=== PATIENT | female | born 1945 ===

== ENCOUNTER 2017-05-08 09:07 | Emergency (ER) | payer SELFPAY ==
[2017-05-08 09:18] VITALS: O2SAT 95
[2017-05-08 09:20] VITALS: BMI 24.6
[2017-05-08 09:39] VITALS: RESP 16
[2017-05-08 09:50] LABS: RBC URINE 71 /hpf (0-3); URINE BILIRUBIN NEGATIVE (NEGATIVE); URINE BLOOD LARGE (NEGATIVE); URINE COLOR YELLOW (YELLOW); URINE GLUCOSE (UA) NEG (Normal); URINE KETONE NEGATIVE (NEGATIVE); URINE LEUKOCYTE ESTERASE LARGE Leu/uL (Negative); URINE PROTEIN 30 mg/dL (NEGATIVE); URINE UROBILINOGEN 0.2-1.0 mg/dL (0.2-1.0); WBC URINE 112 /hpf (0-5)
--- NOTE | 2017-05-08 10:15 | ED PDOC ---
HPI: Female Pain History Per: Patient, Family History/Exam Limitations: no limitations Onset/Duration Of Symptoms: Days Current Symptoms Are (Timing): Still Present Severity: Mild Quality Of Discomfort: Burning Associated Symptoms: Nausea, Back Pain, Urinary Symptoms. denies: Fever, Chills , Vomiting, Diarrhea, Chest Pain, Constipation Additional History Per: Family Additional Complaint(s): CC: abdominal pain HPI: 71 y/o woman w/ no pmh presents to the ED with abdominal pain. The patient reports 2 days of general abdominal pain but mainly in the suprapubic area. The patient reports dysuria, pain radiating to back, and constant. The patient reports associated hematuria and nausea but denies vomiting, diarrhea, fever, or history of nephrolithiases in the past. The patient has not taken any medication for the pain. The patient is visiting from [facility]. The patient had right femoral hernia repair 14 years ago. ROS: 12 points assessed and 11 negative unless other vasquez reported in HPI allergies: NKDA PMH: none PSH: right femoral hernia repair 14 years ago SOC: denies smoking, alcohol, and drugs Abnormal Vaginal Bleeding: No Last Menstral Period: menopausal <Sabino Ferreira - Last Filed: 05/08/17 15:39> <Robb Sheehan - Last Filed: 05/08/17 16:13> Time Seen by Provider: 05/08/17 09:26 Chief Complaint (Nursing): Female Genitourinary Supervising Attending Note - Supervising Attending Note The Documented history was done by the: Physician Buckle Coverer The documented physical exam was done by the: Physician Buckle Coverer The documented procedures were done by the: Physician Buckle Coverer - Attestation: I have personally seen and examined this patient.: Yes I have fully participated in the care of the patient.: Yes I have reviewed all pertinent clinical information, including history, physical exam and plan: Yes - Notes: Notes:: Dysuria <Robb Sheehan - Last Filed: 05/08/17 16:13> Past Medical History Reviewed: Historical Data, Nursing Documentation, Vital Signs Vital Signs: Last Vital Signs Temp 98.0 F 05/08/17 09:31 Pulse 56 L 05/08/17 09:31 Resp 16 05/08/17 09:31 BP 123/53 L 05/08/17 09:31 Pulse Ox 95 05/08/17 09:31 - Medical History PMH: No Chronic Diseases - Family History Family History: States: Unknown Family Hx <Sabino Ferreira - Last Filed: 05/08/17 15:39> Vital Signs: Last Vital Signs Temp 98.1 F 05/08/17 15:35 Pulse 61 05/08/17 15:35 Resp 16 05/08/17 15:35 BP 128/62 05/08/17 15:35 Pulse Ox 95 05/08/17 15:39 <SheehanRobb rodriguez - Last Filed: 05/08/17 16:13> - Home Medications Home Medications: Ambulatory Orders Medication Instructions Recorded Nitrofurantoin Macrocrystals 100 mg PO BID #10 cap 05/08/17 [Macrobid] - Allergies Allergies/Adverse Reactions: Allergies Allergy/AdvReac Type Severity Reaction Status Date / Time No Known Allergies Allergy Verified 05/08/17 09:31 Review of Systems ROS Statement: Except As Marked, All Systems Reviewed And Found Negative Constitutional: Negative for: Fever, Weakness Cardiovascular: Negative for: Chest Pain, Palpitations, Light Headedness Respiratory: Negative for: Cough, Shortness of Breath, SOB with Exertion, Wheezing Gastrointestinal: Positive for: Nausea, Abdominal Pain. Negative for: Vomiting , Diarrhea Genitourinary Female: Positive for: Dysuria, Hematuria Musculoskeletal: Positive for: Back Pain Neurological: Negative for: Weakness, Numbness, Altered Mental Status, Headache <Sabino Ferreira - Last Filed: 05/08/17 15:39> Physical Exam - Reviewed Nursing Documentation Reviewed: Yes Vital Signs Reviewed: Yes - Physical Exam Appears: Positive for: No Acute Distress Head Exam: Positive for: ATRAUMATIC, NORMAL INSPECTION, NORMOCEPHALIC Skin: Positive for: Normal Color, Warm, Dry Neck: Positive for: Normal, Painless ROM, Supple Cardiovascular/Chest: Positive for: Regular Rate, Rhythm, Chest Non Tender, Bradycardia. Negative for: Tachycardia Respiratory: Positive for: Normal Breath Sounds. Negative for: Accessory Muscle Use, Crackles, Rales, Rhonchi, Wheezing, Respiratory Distress Pulses-Carotid (L): 2+ Pulses-Carotid (R): 2+ Pulses-Post. Tibialis (L): 2+ Pulses-Post. Tibialis (R): 2+ Pulses-Radial (L): 2+ Pulses-Radial (R): 2+ Gastrointestinal/Abdominal: Positive for: Bowel Sounds, Soft, Tenderness. Negative for: Mass, Distended, Guarding, Rebound, Hernia Back: Negative for: L CVA Tenderness, R CVA Tenderness Neurologic/Psych: Positive for: Alert, Oriented. Negative for: Motor/Sensory Deficits, Aphasia <Sabino Ferreira - Last Filed: 05/08/17 15:39> - Physical Exam Cardiovascular/Chest: Positive for: Regular Rate, Rhythm, Chest Non Tender Respiratory: Positive for: Normal Breath Sounds <Robb Sheehan - Last Filed: 05/08/17 16:13> - Laboratory Results Result Diagrams: 05/08/17 10:45 05/08/17 10:45 - ECG O2 Sat by Pulse Oximetry: 95 - Progress ED Course And Treament: CBC w/ diff CMP troponin VBG UA blood culture urine culture EKG CT abdomen/pelvis w/ PO and IV contrast toradol 15 mg IVP IVF NS bolus <Sabino Ferreira - Last Filed: 05/08/17 15:39> - Laboratory Results Result Diagrams: 05/08/17 10:45 05/08/17 10:45 Interpretation Of Abn Labs: urine wbc - Progress ED Course And Treament: 1613: Stable. AAOx3. Tolerated PO. Fu with pcp. <SissyRobb - Last Filed: 05/08/17 16:13> Medical Decision Making Medical Decision Makin71 y/o woman w/ no pmh presents to the ED with abdominal pain CBC w/ diff: 8.0>13.7/41.1<219 CMP: 140/4.0, 107/21, 22/0.6, glucose 95, AST 24, ALT 27, alk phos 87 troponin: 0.0140 VBG: UA: protein 30, large blood, large leukocyte esterase, RBC 71, negative for ketones and nitrates blood culture urine culture EKG: sinus bradycardia, no ST segment elevation, depression, no peaked/inverted T waves, no widened QRS, no prolonged SD interval, no widened QT interval CT abdomen/pelvis w/ PO and IV contrast toradol 15 mg IVP IVF NS bolus re-evaluated 15:30 - patient feels better - CT scan negative Dispo: DC home, given script for macrobid 100 mg PO BID for 5 days <Sabnio Ferreira - Last Filed: 05/08/17 15:39> Disposition - Patient ED Disposition Is Patient to be Admitted: No Discussed With DrBill: Robb Sheehan Counseled Patient/Family Regarding: Studies Performed, Diagnosis, Need For Followup, Rx Given - Disposition Disposition Time: 15:39 - POA Present On Arrival: None <Sabino Ferreira - Last Filed: 05/08/17 15:39> <Robb Sheehan - Last Filed: 05/08/17 16:13> - Clinical Impression Clinical Impression: Urinary tract infection, Abdominal pain, Dehydration - Disposition Referrals: [facility] [Outside] - 05/09/17 Condition: STABLE Additional Instructions: Return if not better in 3 days. Prescriptions: Nitrofurantoin Macrocrystals [Macrobid] 100 mg PO BID #10 cap Instructions: Dehydration (ED), Urinary Tract Infection in Women (ED), Acute Abdominal Pain (ED) Forms: [employer] (Japanese) Print Language: MACEDONIAN
[2017-05-08] MEDS ORDERED: Iohexol 240 (50 ml) ONE (10:29)
[2017-05-08] MEDS: Sodium Chloride 0.9% 1,000 ML IV STA (10:42)
[2017-05-08] MEDS: Iohexol 240 (50 ml) PO ONE (10:43)
[2017-05-08 10:55] LABS: BASO # 0.1 K/uL (0.0-0.2); EOS # 0.2 K/uL (0.0-0.7); EOS % 2.4 % (0.0-4.0); HEMATOCRIT 41.1 % (34.0-47.0); LYMPH # 1.3 K/uL (1.0-4.3); LYMPH % 15.7 % (20.0-40.0); MEAN CELL VOLUME 90.1 fl (81.0-99.0); MEAN CORPUSCULAR HEMOGLOBIN 29.9 pg (27.0-31.0); MEAN CORPUSCULAR HGB CONC 33.2 g/dL (33.0-37.0); MEAN PLATELET VOLUME 7.4 fl (7.2-11.7); MONO # 0.5 K/uL (0.0-0.8); MONO % 6.7 % (0.0-10.0); NEUT % 74.2 % (50.0-75.0); RED CELL DISTRIBUTION WIDTH 13.5 % (11.5-14.5)
[2017-05-08 11:06] LABS: CARBON DIOXIDE 21 mmol/L (22-30); CHLORIDE 107 mmol/L (98-107); GLUCOSE,RANDOM 95 mg/dL (65-105); SODIUM 140 mmol/l (132-148); TOTAL PROTEIN 7.3 G/DL (6.3-8.2)
[2017-05-08 11:07] LABS: ALB/GLOB RATIO 1.3 (1.0-2.1); ALKALINE PHOSPHATASE 87 U/L (38-126); ALT/SGPT 27 U/L (9-52); AST/SGOT 24 U/L (14-36); BLOOD UREA NITROGEN 22 mg/dl (7-17); CALCIUM 8.8 mg/dL (8.4-10.2); GFR AFRICAN-AMERICAN > 60
--- NOTE | 2017-05-08 12:37 | CARD ---
APPROVED REPORT EKG Measurement Heart [id number] MD [id number] <Conclusion> Sinus bradycardia Otherwise normal ECG
[2017-05-08] MEDS ORDERED: Sodium Chloride 0.9% 50 ML IV ONE (14:41)
[2017-05-08] MEDS ORDERED: Iohexol 300 100 ML IJ ONE (14:41)
--- NOTE | 2017-05-08 15:17 | CT ---
PROCEDURE: CT Abdomen and Pelvis with contrast HISTORY: Abdominal pain, hematuria COMPARISON: None. TECHNIQUE: Contrast dose: 95 cc Omnipaque 300 Radiation dose: Total exam DLP = 456.27 open mGy-cm. This CT exam was performed using one or more of the following dose reduction techniques: Automated exposure control, adjustment of the mA and/or kV according to patient size, and/or use of iterative reconstruction technique. FINDINGS: LOWER THORAX: Unremarkable. LIVER: Hepatic steatosis. No focal masses. No intrahepatic bile duct dilatation or perihepatic ascites. Focal fatty sparing adjacent to the falciform ligament. GALLBLADDER AND BILE DUCTS: Unremarkable. PANCREAS: Unremarkable. No gross lesion or ductal dilatation.Incidental finding(s): Pancreas divisum SPLEEN: Unremarkable. ADRENALS: Unremarkable. No mass. KIDNEYS AND URETERS: Unremarkable. No hydronephrosis. No solid mass. VASCULATURE: Unremarkable. No aortic aneurysm. BOWEL: Constipation without fecal impaction or obstruction. APPENDIX: Normal appendix. PERITONEUM: Unremarkable. No free fluid. No free air. LYMPH NODES: Unremarkable. No enlarged lymph nodes. BLADDER: Unremarkable. REPRODUCTIVE: Unremarkable. BONES: No acute fracture. OTHER FINDINGS: None. IMPRESSION: No significant or acute findings to account for/ related to the clinical presentation. Additional benign and/or incidental findings described above.
[2017-05-08 16:05] VITALS: BP 128/62; PULSE 61; TEMP 98.1
== END 2017-05-08 16:04 | disposition home or self-care (01) ==
LOC: H.ER 09:07
DX: E86.0 Dehydration (principal); N39.0 Urinary tract infection, site not specified
CPT/HCPCS: 74177; 80053; 81003; 84484; 85025; 87040; 87086; 87181; 93005; 96374; 99282; J1885; J7040; Q9966; Q9967

== ENCOUNTER 2018-07-14 21:03 | Inpatient (IN) | payer OTHER ==
[2018-07-14 21:03] VITALS: BMI 24.6
[2018-07-14] MEDS ORDERED: Oxycodone/Acetaminophen 5/325 mg Tab PO STA (22:20)
[2018-07-14] MEDS ORDERED: Sodium Chloride 0.9% 1,000 ML IV STA (22:21)
[2018-07-14 22:54] LABS: VENOUS BLOOD GAS BASE EXCESS 1.3 mmol/L (0.0-2.0); VENOUS BLOOD GAS PCO2 47 mmHg (40-60); VENOUS BLOOD GAS PO2 36 mm/Hg (30-55); VENOUS BLOOD PH 7.37 (7.32-7.43)
[2018-07-14] MEDS ORDERED: Oxycodone/Acetaminophen 5/325 mg Tab ONE (22:57)
[2018-07-14 23:08] LABS: BASO % 0.2 % (0.0-2.0); EOS # 0.3 K/uL (0.0-0.7); EOS % 7.3 % (0.0-4.0); HEMOGLOBIN 13.2 g/dL (12.0-16.0); LYMPH % 43.2 % (20.0-40.0); MEAN CELL VOLUME 89.3 fl (81.0-99.0); MEAN CORPUSCULAR HEMOGLOBIN 29.2 pg (27.0-31.0); MEAN CORPUSCULAR HGB CONC 32.7 g/dL (33.0-37.0); MEAN PLATELET VOLUME 7.5 fl (7.2-11.7); MONO # 0.4 K/uL (0.0-0.8); MONO % 8.2 % (0.0-10.0); NEUT # 1.9 K/uL (1.8-7.0); NEUT % 41.1 % (50.0-75.0); NRBC % 0.1 % (0.0-0.0); RBC 4.53 Mil/uL (3.80-5.20); WHITE BLOOD COUNT 4.5 K/uL (4.8-10.8)
[2018-07-14 23:17] LABS: ALB/GLOB RATIO 1.1 (1.0-2.1); ALT/SGPT 25 U/L (9-52); AST/SGOT 25 U/L (14-36); BLOOD UREA NITROGEN 20 mg/dl (7-17); CALCIUM 8.4 mg/dL (8.4-10.2); GFR NON-AFRICAN AMERICAN > 60
[2018-07-14 23:49] LABS: URINE BACTERIA RARE (<OCC); URINE BILIRUBIN NEGATIVE (NEGATIVE); URINE BLOOD SMALL (NEGATIVE); URINE CLARITY CLEAR (Clear); URINE COLOR COLORLESS (YELLOW); URINE GLUCOSE (UA) NEG (Normal); URINE LEUKOCYTE ESTERASE NEG Leu/uL (Negative); URINE PROTEIN NEGATIVE (NEGATIVE); URINE UROBILINOGEN 0.2-1.0 mg/dL (0.2-1.0)
--- NOTE | 2018-07-14 23:55 | ED PDOC ---
HPI: Back Time Seen by Provider: 07/14/18 22:09 Chief Complaint (Nursing): Back Pain Chief Complaint (Provider): Left sided back pain History Per: Patient History/Exam Limitations: no limitations Onset/Duration Of Symptoms: Days (x4) Current Symptoms Are (Timing): Still Present Additional Complaint(s): 72 year old [employer] [place] female presents to the ED with 4 days of worsening left sided back pain that radiates to the left groin. Patient denies pain on urination but states she has increased urinary frequency during this time. Patient is visiting from [facility] and flew to [place] 4 days ago. Patient has not been to a doctor in many years and has no known medical problems. She states she uses herbal remedies for general medical problems. She has no previous diagnoses of medical problems. Denies chest pain, shortness of breath, or calf pain. PMD: none Past Medical History Reviewed: Historical Data, Nursing Documentation, Vital Signs Vital Signs: Last Vital Signs Temp 98.3 F 07/14/18 21:49 Pulse 57 L 07/14/18 21:49 Resp 16 07/14/18 21:49 BP 171/79 H 07/14/18 21:49 Pulse Ox 97 07/14/18 21:49 - Medical History PMH: No Chronic Diseases - Surgical History Surgical History: No Surg Hx - Family History Family History: States: Unknown Family Hx - Home Medications Home Medications: Ambulatory Orders Medication Instructions Recorded No Known Home Med 07/15/18 - Allergies Allergies/Adverse Reactions: Allergies Allergy/AdvReac Type Severity Reaction Status Date / Time No Known Allergies Allergy Verified 05/08/17 09:31 Review of Systems ROS Statement: Except As Marked, All Systems Reviewed And Found Negative Cardiovascular: Negative for: Chest Pain Respiratory: Negative for: Shortness of Breath Genitourinary Female: Positive for: Frequency (increased urinary frequency). Negative for: Dysuria Musculoskeletal: Positive for: Back Pain (left sided back pain radiating to the left groin). Negative for: Other (calf pain) Physical Exam - Reviewed Nursing Documentation Reviewed: Yes Vital Signs Reviewed: Yes - Physical Exam Appears: Positive for: Non-toxic, No Acute Distress Head Exam: Positive for: ATRAUMATIC, NORMOCEPHALIC Skin: Positive for: Normal Color, Warm, Dry Eye Exam: Positive for: Normal appearance Neck: Positive for: Normal, Painless ROM Cardiovascular/Chest: Positive for: Regular Rate, Rhythm Respiratory: Positive for: Normal Breath Sounds. Negative for: Wheezing, Respiratory Distress Gastrointestinal/Abdominal: Positive for: Tenderness (suprapubic tenderness on palpation), Other (Left sided flank pain) Back: Negative for: Vertebral Tenderness Extremity: Positive for: Normal ROM (Full ROM of spine and all extremities) Neurologic/Psych: Positive for: Alert, Oriented. Negative for: Motor/Sensory Deficits - Laboratory Results Result Diagrams: 07/14/18 23:04 07/14/18 23:04 - ECG O2 Sat by Pulse Oximetry: 97 (RA) Pulse Ox Interpretation: Normal Medical Decision Making Medical Decision Making: Initial Impression: workup for renal pathology, UTI vs left sided musculoskeletal pain Initial Plan: --Basic labs --IV fluids --Percocet 1 tab PO --Reassess patient Will consider imaging if basic work up is unremarkable. 01:35 CT abd/pelvis Small sliding hiatal hernia. Fluid-filled dilated small bowel loops in the left lower quadrant. Uncomplicated colonic diverticulosis. The liver is of uniform attenuation without mass or defect. There is no intra or extrahepatic biliary ductal dilatation. The spleen is normal. The gallbladder is within normal limits. The pancreas is of normal contour and attenuation characte ristics. There is no evidence of adrenal mass. Both kidneys demonstrate prompt and equal nephrograms. The kidneys are normal in size, shape and configuration. There is no evidence of renal or ureteral mass. No renal or ureteral calculi are identified. There is no hydroureter or hydronephrosis. No evidence for appendicitis. There is no evidence of abdominal ascites or lymphadenopathy. There is no evidence of intrinsic or extrinsic bladder mass. There is no pelvic ascites or lymphadenopathy. Images of the lung bases show no evidence of pleural or parenchymal mass. There are no pleural effusions. The bony structures are free of lytic or blastic lesions. IMPRESSION: Ileus versus developing partial small bowel obstruction. No bowel perforation or pneumatosis intestinalis. Clinic evaluation and followup exam is suggested. 02:31 CT showing ileus vs partial small bowel obstruction. Patient's pain is not controlled with percocet, required morphine. Pt placed on NPO and IV fluids have been given. Surgery consult placed. Pt to be admitted to the medicine service for further monitoring of small bowel obstruction. Futher discussion of patien't past medical history reveals a previous abdominal hernia repair about 10 years ago. Pt and her daughter in law in agreement with admission. Scribe Attestation: Documented by Nicolas Ramos acting as a scribe for Valentina Jimenez MD. Provider Scribe Attestation: All medical record entries made by the Scribe were at my direction and person ally dictated by me. I have reviewed the chart and agree that the record accurately reflects my personal performance of the history, physical exam, medical decision making, and the department course for this patient. I have also personally directed, reviewed, and agree with the discharge instructions and disposition. Disposition - Clinical Impression Clinical Impression: Ileus following gastrointestinal surgery - Disposition Disposition Time: 02:58 Condition: STABLE
[2018-07-15] MEDS ORDERED: Morphine 4 MG/ML VIAL ONE (00:17)
[2018-07-15] MEDS ORDERED: Sodium Chloride 0.9% 50 ML IV ONE (00:27)
[2018-07-15] MEDS ORDERED: Iohexol 300 100 ML IJ ONE (00:27)
[2018-07-15] MEDS ORDERED: Sodium Chloride 0.9% 1,000 ML IV STA (03:04)
[2018-07-15] MEDS ORDERED: Oxycodone/Acetaminophen 5/325 mg Tab PO PRN (03:04)
[2018-07-15] MEDS ORDERED: Lactated Ringer's 1,000 ML IV SCH (03:15)
--- NOTE | 2018-07-15 03:24 | CP.PCM.CON ---
History of Present Illness - History of Present Illness History of Present Illness: General surgery consult note for Dr. Brown Consulted for SBO Patient is a 72 [facility] who presents with LLQ and back pain x 4 days. She states the pain is constant and has no alleviating or aggravating factors. She denies f/c, n/v, KAPADIA, SOB, CP and extremity pain or weakness. Last BM was yesterday, normal no blood. Patient is not sure if she has ever had a colonoscopy and has not seen a doctor in some time. PMH: denies PSH: left inguinal hernia repair All: nkda Social: denies Review of Systems - Review of Systems Systems not reviewed;Unavailable: Acuity of Condition (per HPI) Past Patient History - Infectious Disease Hx of Infectious Diseases: None - Past Social History Smoking Status: Never Smoked - PSYCHIATRIC Hx Substance Use: No - SURGICAL HISTORY Hx Herniorrhaphy: Yes Meds Allergies/Adverse Reactions: Allergies Allergy/AdvReac Type Severity Reaction Status Date / Time No Known Allergies Allergy Verified 05/08/17 09:31 - Medications Medications: Current Medications Sodium Chloride (Sodium Chloride 0.9%) 1,000 mls @ 200 mls/hr IV .Q5H STA Stop: 07/15/18 08:03 Lactated Ringer's (Lactated Ringer's) 1,000 mls @ 125 mls/hr IV .Q8H CATHLEEN Stop: 07/15/18 11:14 Morphine Sulfate (Morphine) 2 mg IVP Q4 PRN PRN Reason: Pain, severe (8-10) Ondansetron HCl (Zofran Inj) 4 mg IVP Q6 PRN PRN Reason: Nausea/Vomiting Oxycodone/Acetaminophen (Percocet 5/325 Mg Tab) 1 tab PO Q4 PRN PRN Reason: Pain, moderate (4-7) Stop: 07/18/18 03:05 Physical Exam - Constitutional Appears: Well, Non-toxic, No Acute Distress - Head Exam Head Exam: ATRAUMATIC, NORMOCEPHALIC - Eye Exam Eye Exam: EOMI - ENT Exam ENT Exam: Mucous Membranes Moist - Respiratory Exam Respiratory Exam: NORMAL BREATHING PATTERN - Cardiovascular Exam Cardiovascular Exam: REGULAR RHYTHM - GI/Abdominal Exam GI & Abdominal Exam: Soft, Tenderness (LLQ). absent: Distended, Guarding, Rebound - Extremities Exam Extremities exam: Positive for: pedal pulses present. Negative for: calf tenderness, pedal edema - Back Exam Back exam: NORMAL INSPECTION. absent: tenderness - Neurological Exam Neurological exam: Alert, Oriented x3 - Psychiatric Exam Psychiatric exam: Normal Affect, Normal Mood - Skin Skin Exam: Dry, Intact, Normal Color, Warm Results - Vital Signs Recent Vital Signs: Last Vital Signs Temp 98.3 F 07/15/18 02:51 Pulse 53 L 07/15/18 02:51 Resp 18 07/15/18 02:51 BP 146/77 07/15/18 02:51 Pulse Ox 97 07/15/18 02:58 - Labs Result Diagrams: 07/16/18 05:40 07/16/18 05:40 Labs: Laboratory Results - last 24 hr 07/14/18 07/14/18 07/14/18 22:47 23:04 23:04 WBC 4.5 L RBC 4.53 Hgb 13.2 Hct 40.5 MCV 89.3 MCH 29.2 MCHC 32.7 L RDW 14.0 Plt Count 243 MPV 7.5 Neut % (Auto) 41.1 L Lymph % (Auto) 43.2 H Ida % (Auto) 8.2 Eos % (Auto) 7.3 H Baso % (Auto) 0.2 Neut # (Auto) 1.9 Lymph # (Auto) 2.0 Ida # (Auto) 0.4 Eos # (Auto) 0.3 Baso # (Auto) 0.0 pO2 36 VBG pH 7.37 VBG pCO2 47 VBG HCO3 25.1 VBG Total CO2 28.6 H VBG O2 Sat (Calc) 75.5 H VBG Base Excess 1.3 VBG Potassium 3.7 Sodium 138.0 142 Chloride 107.0 109 H Glucose 126 H Lactate 1.2 FiO2 21.0 Potassium 3.8 Carbon Dioxide 22 Anion Gap 15 BUN 20 H Creatinine 0.5 L Est GFR ( Amer) > 60 Est GFR (Non-Af Amer) > 60 Random Glucose 121 H Calcium 8.4 Total Bilirubin 0.3 AST 25 ALT 25 Alkaline Phosphatase 86 Total Protein 7.5 Albumin 4.0 Globulin 3.6 Albumin/Globulin Ratio 1.1 Venous Blood Potassium 3.7 Urine Color Urine Clarity Urine pH Ur Specific [place] Urine Protein Urine Glucose (UA) Urine Ketones Urine Blood Urine Nitrate Urine Bilirubin Urine Urobilinogen Ur Leukocyte Esterase Urine RBC (Auto) Urine Microscopic WBC Urine Bacteria 07/14/18 23:31 WBC RBC Hgb Hct MCV MCH MCHC RDW Plt Count MPV Neut % (Auto) Lymph % (Auto) Ida % (Auto) Eos % (Auto) Baso % (Auto) Neut # (Auto) Lymph # (Auto) Ida # (Auto) Eos # (Auto) Baso # (Auto) pO2 VBG pH VBG pCO2 VBG HCO3 VBG Total CO2 VBG O2 Sat (Calc) VBG Base Excess VBG Potassium Sodium Chloride Glucose Lactate FiO2 Potassium Carbon Dioxide Anion Gap BUN Creatinine Est GFR ( Amer) Est GFR (Non-Af Amer) Random Glucose Calcium Total Bilirubin AST ALT Alkaline Phosphatase Total Protein Albumin Globulin Albumin/Globulin Ratio Venous Blood Potassium Urine Color Colorless Urine Clarity Clear Urine pH 7.0 Ur Specific [place] 1.006 Urine Protein Negative Urine Glucose (UA) Neg Urine Ketones Negative Urine Blood Small Urine Nitrate Negative Urine Bilirubin Negative Urine Urobilinogen 0.2-1.0 Ur Leukocyte Esterase Neg Urine RBC (Auto) 1 Urine Microscopic WBC 1 Urine Bacteria Rare Assessment & Plan - Assessment and Plan (Free Text) Assessment: 72 yr old female with early SBO Plan: NPO IVF bowel rest f/u bowel function pain control zofran NGT will d/w Dr. Stephanie Raza, PGY 1 - Date & Time Date: 07/15/18 Time: 03:15
--- NOTE | 2018-07-15 03:44 | CP.PCM.HP ---
History of Present Illness - History of Present Illness History of Present Illness: CC: flank and abd pain HPI: 72 YO Female with no sig PMHx presented to [facility] ED for flank and abd pain. Pt states that the pain started in her L flank abut 4 days ago. Pain has remained the same intensity and no relief with PO pain meds. Pain is 5-6/10, cramping in nature, started in the L flank and then wrapped around the abdomen to the R flank and back. Pain is associated with nausea and bloatedness, but no episodes of emesis. Denies chest pain, dyspnea, v/d/c, fever, chills and symptoms. PMhx: denies Surghx: L inguinal hernia repair FHx: denies SHx: social ETOH, denies smoking and illicit drug use Meds: none Allergies: NKDA Present on Admission - Present on Admission Any Indicators Present on Admission: No Review of Systems - Constitutional Constitutional: absent: Chills, Fever - Cardiovascular Cardiovascular: absent: Chest Pain, Dyspnea, Palpitations - Respiratory Respiratory: absent: Cough, Dyspnea - Gastrointestinal Gastrointestinal: Abdominal Pain, Cramping, Nausea. absent: Constipation, Vomiting - Genitourinary Genitourinary: absent: Dysuria, Urinary Frequency Past Patient History - Infectious Disease Hx of Infectious Diseases: None - Past Social History Smoking Status: Never Smoked Alcohol: Occasional Drugs: Denies Home Situation {Lives}: With Family - PSYCHIATRIC Hx Substance Use: No - SURGICAL HISTORY Hx Herniorrhaphy: Yes Meds Allergies/Adverse Reactions: Allergies Allergy/AdvReac Type Severity Reaction Status Date / Time No Known Allergies Allergy Verified 05/08/17 09:31 Physical Exam - Constitutional Appears: No Acute Distress, Other (at times looks uncomfortable ) - Head Exam Head Exam: NORMAL INSPECTION - Eye Exam Eye Exam: Normal appearance - ENT Exam ENT Exam: Mucous Membranes Moist - Respiratory Exam Respiratory Exam: Clear to Auscultation Bilateral, NORMAL BREATHING PATTERN. absent: Wheezes - Cardiovascular Exam Cardiovascular Exam: REGULAR RHYTHM, +S1, +S2 - GI/Abdominal Exam GI & Abdominal Exam: Normal Bowel Sounds, Soft, Tenderness (mild epigastric tenderenss ). absent: Guarding, Rebound - Extremities Exam Extremities exam: Positive for: normal inspection - Back Exam Back exam: NORMAL INSPECTION. absent: CVA tenderness (L), CVA tenderness (R) - Neurological Exam Neurological exam: Alert Results - Vital Signs Recent Vital Signs: Last Vital Signs Temp 98.3 F 07/15/18 02:51 Pulse 53 L 07/15/18 02:51 Resp 18 07/15/18 02:51 BP 146/77 07/15/18 02:51 Pulse Ox 97 07/15/18 02:58 - Labs Result Diagrams: 07/14/18 23:04 07/14/18 23:04 Labs: Laboratory Results - last 24 hr 07/14/18 07/14/18 07/14/18 22:47 23:04 23:04 WBC 4.5 L RBC 4.53 Hgb 13.2 Hct 40.5 MCV 89.3 MCH 29.2 MCHC 32.7 L RDW 14.0 Plt Count 243 MPV 7.5 Neut % (Auto) 41.1 L Lymph % (Auto) 43.2 H [place] % (Auto) 8.2 Eos % (Auto) 7.3 H Baso % (Auto) 0.2 Neut # (Auto) 1.9 Lymph # (Auto) 2.0 [place] # (Auto) 0.4 Eos # (Auto) 0.3 Baso # (Auto) 0.0 pO2 36 VBG pH 7.37 VBG pCO2 47 VBG HCO3 25.1 VBG Total CO2 28.6 H VBG O2 Sat (Calc) 75.5 H VBG Base Excess 1.3 VBG Potassium 3.7 Sodium 138.0 142 Chloride 107.0 109 H Glucose 126 H Lactate 1.2 FiO2 21.0 Potassium 3.8 Carbon Dioxide 22 Anion Gap 15 BUN 20 H Creatinine 0.5 L Est GFR ( Amer) > 60 Est GFR (Non-Af Amer) > 60 Random Glucose 121 H Calcium 8.4 Total Bilirubin 0.3 AST 25 ALT 25 Alkaline Phosphatase 86 Total Protein 7.5 Albumin 4.0 Globulin 3.6 Albumin/Globulin Ratio 1.1 Venous Blood Potassium 3.7 Urine Color Urine Clarity Urine pH Ur Specific [place] Urine Protein Urine Glucose (UA) Urine Ketones Urine Blood Urine Nitrate Urine Bilirubin Urine Urobilinogen Ur Leukocyte Esterase Urine RBC (Auto) Urine Microscopic WBC Urine Bacteria 07/14/18 23:31 WBC RBC Hgb Hct MCV MCH MCHC RDW Plt Count MPV Neut % (Auto) Lymph % (Auto) [place] % (Auto) Eos % (Auto) Baso % (Auto) Neut # (Auto) Lymph # (Auto) [place] # (Auto) Eos # (Auto) Baso # (Auto) pO2 VBG pH VBG pCO2 VBG HCO3 VBG Total CO2 VBG O2 Sat (Calc) VBG Base Excess VBG Potassium Sodium Chloride Glucose Lactate FiO2 Potassium Carbon Dioxide Anion Gap BUN Creatinine Est GFR ( Amer) Est GFR (Non-Af Amer) Random Glucose Calcium Total Bilirubin AST ALT Alkaline Phosphatase Total Protein Albumin Globulin Albumin/Globulin Ratio Venous Blood Potassium Urine Color Colorless Urine Clarity Clear Urine pH 7.0 Ur Specific [place] 1.006 Urine Protein Negative Urine Glucose (UA) Neg Urine Ketones Negative Urine Blood Small Urine Nitrate Negative Urine Bilirubin Negative Urine Urobilinogen 0.2-1.0 Ur Leukocyte Esterase Neg Urine RBC (Auto) 1 Urine Microscopic WBC 1 Urine Bacteria Rare Assessment & Plan - Assessment and Plan (Free Text) Assessment: Assessment/Plan: 72 YO Female with no sig PMHx is admitted for Ileus. Ileus, early SOB -acute -Ct abd and pelvis: sig for ileus vs developing partial SBO -hx of abdominal surgery -surgery consulted; bowel rest, npo -NPO, cont IVFs, zofran for nausea -pain management MOY -elevated BUN -likely 2/2 to decrease PO intake -cont IVFs -f/w repeat labs DVT proplyx -Lovenox SC
[2018-07-15] MEDS: Morphine 4 MG/ML VIAL IVP PRN ×3 (04:37→22:45)
[2018-07-15] MEDS ORDERED: Pneumococcal 23-Valent Vaccine IM ONE (06:00)
[2018-07-15] MEDS ORDERED: Influenza Vaccine (5 YR UP)/PF 60 MCG/0.5 ML SYR IM ONE (06:00)
[2018-07-15 06:49] LABS: HEMOGLOBIN 12.6 g/dL (12.0-16.0); MEAN CELL VOLUME 91.3 fl (81.0-99.0); MEAN CORPUSCULAR HEMOGLOBIN 29.7 pg (27.0-31.0); MEAN CORPUSCULAR HGB CONC 32.5 g/dL (33.0-37.0); RBC 4.25 Mil/uL (3.80-5.20); RED CELL DISTRIBUTION WIDTH 14.1 % (11.5-14.5); WHITE BLOOD COUNT 4.5 K/uL (4.8-10.8)
[2018-07-15 06:52] LABS: BLOOD UREA NITROGEN 14 mg/dl (7-17); GFR NON-AFRICAN AMERICAN > 60
[2018-07-15] MEDS ORDERED: Enoxaparin 40 mg Syringe SC SCH (09:00)
--- NOTE | 2018-07-15 15:08 | CT ---
Date of service: 07/15/2018 PROCEDURE: CT Abdomen and Pelvis with contrast HISTORY: left flank/back pain and lower abd pain COMPARISON: 05/08/2017. CT abdomen and pelvis. TECHNIQUE: Intravenous contrast dose: 90 cc Omnipaque 300. Radiation dose: Total exam DLP = 355.98. mGy-cm. This CT exam was performed using one or more of the following dose reduction techniques: Automated exposure control, adjustment of the mA and/or kV according to patient size, and/or use of iterative reconstruction technique. FINDINGS: LOWER THORAX: Unremarkable. LIVER: Unremarkable. No gross lesion or ductal dilatation. GALLBLADDER AND BILE DUCTS: Unremarkable. PANCREAS: Mildly prominent pancreatic duct unchanged compared to the prior study. No pancreatic masses identified. The common bile duct is also prominent measuring 6.7 mm. No obstructing lesions or other findings of consequence identified. SPLEEN: Unremarkable. ADRENALS: Unremarkable. No mass. KIDNEYS AND URETERS: Unremarkable. No hydronephrosis. No solid mass. VASCULATURE: Unremarkable. No aortic aneurysm. No atherosclerotic calcification or mural plaque present. BOWEL: Unremarkable. No obstruction. No gross mural thickening. APPENDIX: Normal appendix. PERITONEUM: Unremarkable. No free fluid. No free air. LYMPH NODES: Unremarkable. No enlarged lymph nodes. BLADDER: Unremarkable. REPRODUCTIVE: Unremarkable. BONES: No acute fracture. OTHER FINDINGS: None. IMPRESSION: No acute findings related to/ accounting for the clinical presentation. Additional benign and/or incidental findings described above. No significant interval change compared to the prior examination(s).. Concordant results (preliminary interpretation) provided by untapt. Procedure Completed: 00:42. Preliminary Report: Dictated and Authenticated: 01:35. Final Interpretation: 15:05.
--- NOTE | 2018-07-15 15:13 | CARD ---
APPROVED REPORT Date of service: 07/14/2018 EKG Measurement Heart [id number] CT [id number] [id number] <Conclusion> Sinus bradycardia Otherwise normal ECG
[2018-07-15] MEDS: Dextrose 5%/0.45% NS 1,000 ML IV SCH (18:51)
[2018-07-16] MEDS: Dextrose 5%/0.45% NS 1,000 ML IV SCH (03:30)
[2018-07-16 06:28] LABS: HEMOGLOBIN 13.3 g/dL (12.0-16.0); MEAN CELL VOLUME 89.7 fl (81.0-99.0); MEAN CORPUSCULAR HEMOGLOBIN 29.3 pg (27.0-31.0); MEAN CORPUSCULAR HGB CONC 32.7 g/dL (33.0-37.0); RBC 4.53 Mil/uL (3.80-5.20); RED CELL DISTRIBUTION WIDTH 14.3 % (11.5-14.5); WHITE BLOOD COUNT 5.3 K/uL (4.8-10.8)
[2018-07-16 06:32] LABS: BLOOD UREA NITROGEN 14 mg/dl (7-17); GFR NON-AFRICAN AMERICAN > 60
[2018-07-16 07:45] VITALS: BP 124/69; PULSE 58; RESP 18; TEMP 98.1; O2SAT 94
[2018-07-16] MEDS ORDERED: Enoxaparin 40 mg Syringe SC SCH (09:00)
--- NOTE | 2018-07-16 11:25 | CP.PCM.PN ---
Subjective - Date & Time of Evaluation Date of Evaluation: 07/16/18 Time of Evaluation: 11:23 - Subjective Subjective: Surgery: Dr. Brown Pt seen and examined. Resting comfortably in bed. Pain is improved. No N/V. Was started on soft diet and is tolerating. +Flatus/BM this AM. Objective - Vital Signs/Intake and Output Vital Signs (last 24 hours): Temp Pulse Resp BP Pulse Ox 98.1 F 58 L 18 124/69 94 L 07/16/18 07:44 07/16/18 07:44 07/16/18 07:44 07/16/18 07:44 07/16/18 07:44 - Medications Medications: Current Medications Enoxaparin Sodium (Lovenox) 40 mg SC DAILY CATHLEEN; Protocol Last Admin: 07/16/18 08:22 Dose: 40 mg Dextrose/Sodium Chloride (Dextrose 5%/0.45% Ns 1000 Ml) 1,000 mls @ 100 mls/hr IV .Q10H CATHLEEN Stop: 07/16/18 16:46 Last Admin: 07/16/18 03:30 Dose: 100 mls/hr Morphine Sulfate (Morphine) 2 mg IVP Q4 PRN PRN Reason: Pain, severe (8-10) Last Admin: 07/15/18 22:45 Dose: 2 mg Ondansetron HCl (Zofran Inj) 4 mg IVP Q6 PRN PRN Reason: Nausea/Vomiting Oxycodone/Acetaminophen (Percocet 5/325 Mg Tab) 1 tab PO Q4 PRN PRN Reason: Pain, moderate (4-7) Stop: 07/18/18 03:05 - Labs Labs: 07/16/18 05:40 07/16/18 05:40 - Constitutional Appears: Non-toxic, No Acute Distress - Head Exam Head Exam: ATRAUMATIC, NORMOCEPHALIC - Eye Exam Eye Exam: EOMI - ENT Exam ENT Exam: Mucous Membranes Moist - Neck Exam Neck Exam: Full ROM - Respiratory Exam Respiratory Exam: NORMAL BREATHING PATTERN. absent: Accessory Muscle Use, Respiratory Distress - GI/Abdominal Exam GI & Abdominal Exam: Soft. absent: Distended, Firm, Guarding, Rigid, Tenderness, Rebound - Extremities Exam Extremities Exam: absent: Calf Tenderness, Pedal Edema - Neurological Exam Neurological Exam: Alert, Awake, Oriented x3 Assessment and Plan - Assessment and Plan (Free Text) Assessment: 72F w. SBO, resolving -On soft diet, advance diet as tolerated -continue to monitor bowel fxn -recommend D/C narcotics -will continue to follow -d/w attending Jackson PGY4
--- NOTE | 2018-07-16 13:25 | CP.PCM.DIS ---
Provider - Provider Date of Admission: 07/15/18 03:01 Attending physician: Ami Kennedy MD Consults: Gen Surg: Dr. Brown Time Spent in preparation of Discharge (in minutes): 30 Hospital Course - Lab Results Lab Results: Most Recent Lab Values WBC 5.3 K/uL (4.8-10.8) 07/16/18 05:40 RBC 4.53 Mil/uL (3.80-5.20) 07/16/18 05:40 Hgb 13.3 g/dL (12.0-16.0) 07/16/18 05:40 Hct 40.6 % (34.0-47.0) 07/16/18 05:40 MCV 89.7 fl (81.0-99.0) 07/16/18 05:40 MCH 29.3 pg (27.0-31.0) 07/16/18 05:40 MCHC 32.7 g/dL (33.0-37.0) L 07/16/18 05:40 RDW 14.3 % (11.5-14.5) 07/16/18 05:40 Plt Count 220 K/uL (130-400) 07/16/18 05:40 MPV 7.5 fl (7.2-11.7) 07/14/18 23:04 Neut % (Auto) 41.1 % (50.0-75.0) L 07/14/18 23:04 Lymph % (Auto) 43.2 % (20.0-40.0) H 07/14/18 23:04 [place] % (Auto) 8.2 % (0.0-10.0) 07/14/18 23:04 Eos % (Auto) 7.3 % (0.0-4.0) H 07/14/18 23:04 Baso % (Auto) 0.2 % (0.0-2.0) 07/14/18 23:04 Neut # (Auto) 1.9 K/uL (1.8-7.0) 07/14/18 23:04 Lymph # (Auto) 2.0 K/uL (1.0-4.3) 07/14/18 23:04 [place] # (Auto) 0.4 K/uL (0.0-0.8) 07/14/18 23:04 Eos # (Auto) 0.3 K/uL (0.0-0.7) 07/14/18 23:04 Baso # (Auto) 0.0 K/uL (0.0-0.2) 07/14/18 23:04 pO2 36 mm/Hg (30-55) 07/14/18 22:47 VBG pH 7.37 (7.32-7.43) 07/14/18 22:47 VBG pCO2 47 mmHg (40-60) 07/14/18 22:47 VBG HCO3 25.1 mmol/L 07/14/18 22:47 VBG Total CO2 28.6 mmol/L (22-28) H 07/14/18 22:47 VBG O2 Sat (Calc) 75.5 % (40-65) H 07/14/18 22:47 VBG Base Excess 1.3 mmol/L (0.0-2.0) 07/14/18 22:47 VBG Potassium 3.7 mmol/L (3.6-5.2) 07/14/18 22:47 Sodium 138.0 mmol/L (132-148) 07/14/18 22:47 Chloride 107.0 mmol/L (98-107) 07/14/18 22:47 Glucose 126 mg/dL (65-105) H 07/14/18 22:47 Lactate 1.2 mmol/L (0.7-2.1) 07/14/18 22:47 FiO2 21.0 % 07/14/18 22:47 Sodium 139 mmol/l (132-148) 07/16/18 05:40 Potassium 3.7 MMOL/L (3.6-5.0) 07/16/18 05:40 Chloride 107 mmol/L (98-107) 07/16/18 05:40 Carbon Dioxide 24 mmol/L (22-30) 07/16/18 05:40 Anion Gap 12 (10-20) 07/16/18 05:40 BUN 14 mg/dl (7-17) 07/16/18 05:40 Creatinine 0.5 mg/dl (0.7-1.2) L 07/16/18 05:40 Est GFR ( Amer) > 60 07/16/18 05:40 Est GFR (Non-Af Amer) > 60 07/16/18 05:40 Random Glucose 98 mg/dL (65-105) 07/16/18 05:40 Calcium 8.0 mg/dL (8.4-10.2) L 07/16/18 05:40 Total Bilirubin 0.3 mg/dl (0.2-1.3) 07/14/18 23:04 AST 25 U/L (14-36) 07/14/18 23:04 ALT 25 U/L (9-52) 07/14/18 23:04 Alkaline Phosphatase 86 U/L (38-126) 07/14/18 23:04 Total Protein 7.5 G/DL (6.3-8.2) 07/14/18 23:04 Albumin 4.0 g/dL (3.5-5.0) 07/14/18 23:04 Globulin 3.6 gm/dL (2.2-3.9) 07/14/18 23:04 Albumin/Globulin Ratio 1.1 (1.0-2.1) 07/14/18 23:04 Venous Blood Potassium 3.7 mmol/L (3.6-5.2) 07/14/18 22:47 Urine Color Colorless (YELLOW) 07/14/18 23:31 Urine Clarity Clear (Clear) 07/14/18 23:31 Urine pH 7.0 (5.0-8.0) 07/14/18 23:31 Ur Specific [place] 1.006 (1.003-1.030) 07/14/18 23:31 Urine Protein Negative mg/dL (NEGATIVE) 07/14/18 23:31 Urine Glucose (UA) Neg mg/dL (Normal) 07/14/18 23:31 Urine Ketones Negative mg/dL (NEGATIVE) 07/14/18 23:31 Urine Blood Small (NEGATIVE) 07/14/18 23:31 Urine Nitrate Negative (NEGATIVE) 07/14/18 23:31 Urine Bilirubin Negative (NEGATIVE) 07/14/18 23:31 Urine Urobilinogen 0.2-1.0 mg/dL (0.2-1.0) 07/14/18 23:31 Ur Leukocyte Esterase Neg Dominic/uL (Negative) 07/14/18 23:31 Urine RBC (Auto) 1 /hpf (0-3) 07/14/18 23:31 Urine Microscopic WBC 1 /hpf (0-5) 07/14/18 23:31 Urine Bacteria Rare (<OCC) 07/14/18 23:31 - Hospital Course Hospital Course: 72F with no PMHx admitted for ileus vs. partial SBO 1) Ileus vs. partial SBO -acute -Ct abd and pelvis: sig for ileus vs developing partial SBO -hx of abdominal surgery -surgery consulted; bowel rest, npo -NPO, cont IVFs, zofran for nausea -Diet advanced to bland -pain management Patient was found to have left flank and abdominal pain upon admission. During her hospital course, patient was started on NPO diet and analgesics. Patient's diet was advanced and tolerated well. On day of discharge, patient hemodynamically stable, afebrile, and denies N/V/SOB/CP. Chart was reviewed, and patient stable for discharge home. - Date & Time of H&P Date of H&P: 07/16/18 Time of H&P: 13:26 Discharge Exam - Head Exam Head Exam: ATRAUMATIC, NORMOCEPHALIC - Eye Exam Eye Exam: Normal appearance, PERRL Pupil Exam: NORMAL ACCOMODATION - Respiratory Exam Respiratory Exam: UNREMARKABLE - Cardiovascular Exam Cardiovascular Exam: REGULAR RHYTHM - GI/Abdominal Exam GI & Abdominal Exam: Soft Additional comments: No tenderness upon palpation of abdomen - Rectal Exam Rectal Exam: NORMAL INSPECTION - Extremities Exam Extremities exam: normal capillary refill - Neurological Exam Neurological exam: Alert, Oriented x3 - Psychiatric Exam Psychiatric exam: Normal Affect, Normal Mood - Skin Skin Exam: Intact, Warm Discharge Plan - Follow Up Plan Condition: STABLE Disposition: HOME/ ROUTINE Instructions: Small Bowel Obstruction (DC) Additional Instructions: hacer melissa con friedman primario dentro de 1 semana Referrals: [facility] [Outside] Grover Brown MD [Staff Provider] -
== END 2018-07-16 14:04 | disposition home or self-care (01) | DRG 247 ==
LOC: H.ER 21:03 → H.ERHOLD 07-15 03:01 → H.MEDSURG1 07-15 04:13
PROVIDERS: ADMIT Internal Medicine; ATTEND Internal Medicine
PROC: 3E02340 Introduction of Influenza Vaccine into Muscle, Percutaneous Approach (ICD-10-PCS; principal; 2018-07-15)
PROC: 3E0234Z Introduction of Serum, Toxoid and Vaccine into Muscle, Percutaneous Approach (ICD-10-PCS; 2018-07-15)
DX: K56.7 Ileus, unspecified (principal); N17.9 Acute kidney failure, unspecified; R00.1 Bradycardia, unspecified; Z23 Encounter for immunization; K56.600 Partial intestinal obstruction, unspecified as to cause